=== PATIENT | male | born 1960 ===

== ENCOUNTER 2017-05-31 05:18 | Emergency (ER) | payer OTHER ==
[2017-05-31 05:40] VITALS: PULSE 54; RESP 16; TEMP 98.4; O2SAT 97
--- NOTE | 2017-05-31 05:59 | ED PDOC ---
HPI: Back Time Seen by Provider: 05/31/17 05:41 Chief Complaint (Nursing): Back Pain Chief Complaint (Provider): Back Pain History Per: Patient History/Exam Limitations: no limitations Onset/Duration Of Symptoms: Other (x1 week) Current Symptoms Are (Timing): Still Present Quality Of Discomfort: "Pain" Associated Symptoms: Other Exacerbating Factor(s): Movement (Jogging) Additional Complaint(s): 57 year old female presents to ED with complaints of back pain x1 week and has a past medical history of HTN. (-) radiation of pain, numbness, weakness, loss of sensation, dysuria, or abnormal bowel movements. (+) occasional urinary frequency. Notes that pain worsens after jogging and localizes pain to the lower back region. PCP: SAE - Risk Factors AAA Risk Factors: Pos: Older Than 49 Years Of Age, Hypertension Past Medical History Reviewed: Historical Data, Nursing Documentation, Vital Signs Vital Signs: Last Vital Signs Temp 98.4 F 05/31/17 05:37 Pulse 54 L 05/31/17 05:37 Resp 16 05/31/17 05:37 BP Pulse Ox 97 05/31/17 05:37 - Medical History PMH: HTN - Family History Family History: States: Unknown Family Hx - Allergies Allergies/Adverse Reactions: Allergies Allergy/AdvReac Type Severity Reaction Status Date / Time No Known Allergies Allergy Verified 05/31/17 05:41 Review of Systems ROS Statement: Except As Marked, All Systems Reviewed And Found Negative Gastrointestinal: Negative for: Other ((-) abnormal BM) Genitourinary Male: Positive for: Frequency (occasional). Negative for: Dysuria Musculoskeletal: Positive for: Back Pain (bilat lower back pain). Negative for : Leg Pain Neurological: Negative for: Weakness, Numbness Physical Exam - Reviewed Nursing Documentation Reviewed: Yes Vital Signs Reviewed: Yes - Physical Exam Appears: Positive for: Well, Non-toxic, No Acute Distress Head Exam: Positive for: ATRAUMATIC, NORMAL INSPECTION, NORMOCEPHALIC Skin: Positive for: Normal Color, Warm, Dry Eye Exam: Positive for: EOMI, Normal appearance, PERRL Neck: Positive for: Normal, Painless ROM, Supple Cardiovascular/Chest: Positive for: Regular Rate, Rhythm. Negative for: Murmur Respiratory: Positive for: Normal Breath Sounds. Negative for: Respiratory Distress Gastrointestinal/Abdominal: Positive for: Normal Exam, Soft. Negative for: Tenderness Back: Positive for: Other ((+) mild bilateral lumbar paravertebral musculature tenderness) Extremity: Positive for: Normal ROM, Other ((-) straiht leg test bilaterally) Neurologic/Psych: Positive for: Alert, Oriented, Other ((-) saddle anesthesia). Negative for: Motor/Sensory Deficits (sensations intact) - Laboratory Results Result Diagrams: 05/31/17 06:21 05/31/17 06:21 - ECG O2 Sat by Pulse Oximetry: 97 (RA) Pulse Ox Interpretation: Normal Medical Decision Making Medical Decision Makin Initial impression: musculoskeletal back pain Initial plan: * UDip * Flexeril 10mg PO * Toradol 30mg IM * Re-eval 07 Patient signed out to Jonh Solis MD pending CT. Scribe Attestation: Documented by Vikki Brownlee acting as a scribe for Dagoberto Foote MD. Scribe Attestation: All medical record entries made by the Scribe were at my direction and personally dictated by me. I have reviewed the chart and agree that the record accurately reflects my personal performance of the history, physical exam, medical decision making, and the department course for this patient. I have also personally directed, reviewed, and agree with the discharge instructions and disposition. Disposition - Clinical Impression Clinical Impression: Back pain - Disposition Disposition: Transfer of Care Disposition Time: 07:00 Condition: STABLE Forms: [facility] (Romanian) Patient Signed Over To: Jnoh Solis Handoff Comments: pending CT
[2017-05-31 06:29] VITALS: BP 137/87
[2017-05-31 06:32] LABS: BASO % 0.7 % (0.0-2.0); EOS # 0.1 K/uL (0.0-0.7); EOS % 2.6 % (0.0-4.0); HEMATOCRIT 40.1 % (35.0-51.0); LYMPH # 1.7 K/uL (1.0-4.3); LYMPH % 29.4 % (20.0-40.0); MEAN CELL VOLUME 91.9 fl (80.0-94.0); MEAN CORPUSCULAR HEMOGLOBIN 30.5 pg (27.0-31.0); MEAN CORPUSCULAR HGB CONC 33.1 g/dL (33.0-37.0); MEAN PLATELET VOLUME 8.3 fl (7.2-11.7); MONO # 0.6 K/uL (0.0-0.8); MONO % 10.8 % (0.0-10.0); NEUT # 3.3 K/uL (1.8-7.0); NEUT % 56.5 % (50.0-75.0); NRBC % 0.1 % (0.0-0.0); RED CELL DISTRIBUTION WIDTH 13.4 % (11.5-14.5); WHITE BLOOD COUNT 5.8 K/uL (4.8-10.8)
[2017-05-31 06:36] LABS: BLOOD UREA NITROGEN 20 mg/dl (9-20); CALCIUM 8.5 mg/dL (8.4-10.2); CARBON DIOXIDE 25 mmol/L (22-30); CHLORIDE 103 mmol/L (98-107); GFR AFRICAN-AMERICAN > 60; GLUCOSE,RANDOM 98 mg/dL (75-110); SODIUM 141 mmol/l (132-148)
--- NOTE | 2017-05-31 07:35 | CT ---
EXAM: CT Abdomen and Pelvis Without Intravenous Contrast CLINICAL HISTORY: 57 years old, male; Pain; Abdominal pain; Flank; Right lower quadrant (rlq); Additional info: Back pain, hematuria TECHNIQUE: Axial computed tomography images of the abdomen and pelvis without intravenous contrast. All CT scans at this facility use one or more dose reduction techniques, viz.: automated exposure control; ma/kV adjustment per patient size (including targeted exams where dose is matched to indication; i.e. head); or iterative reconstruction technique. 601 images are submitted.Limitations: Absence of IV contrast decreases sensitivity for detecting solid organ and vascular abnormality. Coronal and sagittal reformatted images were created and reviewed. COMPARISON: No relevant prior studies available. FINDINGS: Lower thorax: There is bibasilar atelectasis. ABDOMEN: Liver: Unremarkable. Gallbladder and bile ducts: Unremarkable. No ductal dilation. Pancreas: Unremarkable. No ductal dilation. Spleen: Unremarkable. No splenomegaly. Adrenals: Unremarkable. No mass. Kidneys and ureters: Unremarkable. No obstructing stones. No hydronephrosis. Stomach and bowel: Diverticulosis. Large amount of stool in the colon. Correlation with patient's clinical history of constipation is recommended. No mucosal thickening. Appendix: Normal appendix. PELVIS: Bladder: Partially distended bladder with bladder wall thickening. Correlation with urinalysis is recommended only if clinical cystitis is suspected. Reproductive: Enlarged prostate gland. ABDOMEN and PELVIS: Intraperitoneal space: Unremarkable. No free air. No significant fluid collection. Bones/joints: No acute fracture. No dislocation. Soft tissues: Right more than left inguinal herniation of fat. Vasculature: Unremarkable. No abdominal aortic aneurysm. Lymph nodes: Unremarkable. No enlarged lymph nodes. IMPRESSION: No acute abnormality on this noncontrast CT examination of the abdomen and pelvis .
[2017-05-31 07:37] LABS: URINE BILIRUBIN NEGATIVE (NEGATIVE); URINE BLOOD LARGE (NEGATIVE); URINE COLOR YELLOW (YELLOW); URINE GLUCOSE (UA) NEG (Normal); URINE KETONE NEGATIVE (NEGATIVE); URINE LEUKOCYTE ESTERASE NEG Leu/uL (Negative); URINE PROTEIN NEGATIVE (NEGATIVE); URINE UROBILINOGEN 0.2-1.0 mg/dL (0.2-1.0)
--- NOTE | 2017-05-31 07:41 | ED PDOC ---
- Laboratory Results Result Diagrams: 05/31/17 06:21 05/31/17 06:21 Urine dip results: Positive for: Blood - ECG O2 Sat by Pulse Oximetry: 97 (RA) Pulse Ox Interpretation: Normal - Progress ED Course And Treament: 700: Took over care from Dr. Foote. Fu on imaging. Here with back pain. 740: Stable. AAOx3. Pain free. Tolerated PO. Fu with pcp. Ambulated with no issues. Disposition - Clinical Impression Clinical Impression: Back pain - POA Present On Arrival: None - Disposition Referrals: [facility] [Outside] - 06/01/17 Disposition: Routine/Home Disposition Time: 07:42 Condition: STABLE Additional Instructions: Return if not better in 3 days. Prescriptions: Ibuprofen [Motrin] 600 mg PO TID 7 Days tab Instructions: Back Pain (ED) Forms: [facility] (German)
[2017-05-31 07:45] LABS: RBC URINE 14 /hpf (0-3); WBC URINE 5 /hpf (0-5)
[2017-05-31 07:46] LABS: URINE BACTERIA RARE (<OCC)
== END 2017-05-31 08:03 | disposition home or self-care (01) ==
LOC: H.ER 05:18
DX: M54.9 Dorsalgia, unspecified (principal); R10.9 Unspecified abdominal pain; I10 Essential (primary) hypertension
CPT/HCPCS: 74176; 80048; 81003; 85025; 96372; 99282; J1885

== ENCOUNTER 2017-07-08 06:46 | Inpatient (IN) | payer OTHER ==
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
[2017-07-08 07:52] LABS: BASO # 0.1 K/uL (0.0-0.2); BASO % 0.9 % (0.0-2.0); EOS # 0.1 K/uL (0.0-0.7); EOS % 1.7 % (0.0-4.0); HEMATOCRIT 39.4 % (35.0-51.0); LYMPH # 1.6 K/uL (1.0-4.3); LYMPH % 29.9 % (20.0-40.0); MEAN CELL VOLUME 90.5 fl (80.0-94.0); MEAN CORPUSCULAR HEMOGLOBIN 30.5 pg (27.0-31.0); MEAN CORPUSCULAR HGB CONC 33.7 g/dL (33.0-37.0); MEAN PLATELET VOLUME 8.2 fl (7.2-11.7); MONO # 0.6 K/uL (0.0-0.8); MONO % 11.5 % (0.0-10.0); NEUT # 3.1 K/uL (1.8-7.0); NRBC % 0.2 % (0.0-0.0); RED CELL DISTRIBUTION WIDTH 13.6 % (11.5-14.5); WHITE BLOOD COUNT 5.5 K/uL (4.8-10.8)
[2017-07-08 07:58] LABS: PARTIAL THROMBOPLASTIN TIME 34.5 Seconds (25.6-37.1)
[2017-07-08 08:03] LABS: ALB/GLOB RATIO 1.2 (1.0-2.1); ALKALINE PHOSPHATASE 47 U/L (38-126); ALT/SGPT 64 U/L (21-72); AST/SGOT 36 U/L (17-59); BILIRUBIN,TOTAL 0.5 mg/dl (0.2-1.3); BLOOD UREA NITROGEN 27 mg/dl (9-20); CALCIUM 8.5 mg/dL (8.4-10.2); CARBON DIOXIDE 24 mmol/L (22-30); CHLORIDE 107 mmol/L (98-107); GFR AFRICAN-AMERICAN > 60; GLUCOSE,RANDOM 95 mg/dL (75-110); POTASSIUM 4.1 MMOL/L (3.6-5.0); SODIUM 142 mmol/l (132-148); TOTAL PROTEIN 7.6 G/DL (6.3-8.2)
--- NOTE | 2017-07-08 08:52 | RAD ---
HISTORY: CP COMPARISON: No prior. FINDINGS: LUNGS: No active pulmonary disease. PLEURA: No significant pleural effusion identified, no pneumothorax apparent. CARDIOVASCULAR: Normal. OSSEOUS STRUCTURES: No significant abnormalities. VISUALIZED UPPER ABDOMEN: Normal. OTHER FINDINGS: None. IMPRESSION: No acute cardiopulmonary disease appreciated.
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
[2017-07-08 11:46] LABS: T4 9.5 ug/dl (5.5-11.0)
[2017-07-08 12:00] LABS: THYROID STIMULATING HORMONE 0.99 mIU/ML (0.46-4.68)
--- NOTE | 2017-07-08 12:58 | CP.PCM.PN ---
Subjective - Date & Time of Evaluation Date of Evaluation: 07/08/17 Time of Evaluation: 12:57 Objective - Vital Signs/Intake and Output Vital Signs (last 24 hours): Temp Pulse Resp BP Pulse Ox 97.5 F L 55 L 18 138/81 97 07/08/17 11:45 07/08/17 11:45 07/08/17 11:45 07/08/17 11:45 07/08/17 11:45 - Medications Medications: Current Medications Aspirin (Aspirin Chewable) 81 mg PO DAILY [facility] Enalapril Maleate (Vasotec) 5 mg PO DAILY [facility] Enoxaparin Sodium (Lovenox) 40 mg SC DAILY [facility] PRN Reason: Protocol Naproxen (Naprosyn Tab) 250 mg PO Q8 [facility] - Labs Labs: 07/08/17 07:36 07/08/17 07:36 PT 12.6 Seconds (9.8-13.1) 07/08/17 07:36 INR 1.1 (0.9-1.2) 07/08/17 07:36 APTT 34.5 Seconds (25.6-37.1) 07/08/17 07:36 Assessment and Plan - Assessment and Plan (Free Text) Plan: check echo check lipids and labs check esr to ro traumatic myocarditis tele pt demarcus without meds, would avoid bbs ro mi
--- NOTE | 2017-07-08 12:59 | CP.PCM.CON ---
Past Patient History - Past Social History Smoking Status: Former Smoker - CARDIAC Hx Cardiac Disorders: Yes (HTN) Hx Hypertension: Yes - PULMONARY Hx Sleep Apnea: Yes (as per pt) - NEUROLOGICAL Hx Neurological Disorder: No - HEENT Hx HEENT Problems: No - RENAL Hx Chronic Kidney Disease: No - ENDOCRINE/METABOLIC Hx Endocrine Disorders: No - HEMATOLOGICAL/ONCOLOGICAL Hx Blood Disorders: No - INTEGUMENTARY Hx Dermatological Problems: No - MUSCULOSKELETAL/RHEUMATOLOGICAL Hx Musculoskeletal Disorders: No Hx Falls: No - GASTROINTESTINAL Hx Gastrointestinal Disorders: No - GENITOURINARY/GYNECOLOGICAL Hx Genitourinary Disorders: No - PSYCHIATRIC Hx Psychophysiologic Disorder: No Hx Substance Use: No - SURGICAL HISTORY Hx Surgeries: No - ANESTHESIA Hx Anesthesia: No Hx Anesthesia Reactions: No Hx Malignant Hyperthermia: No Has any member of the family had a problem w/ anesthesia?: No Meds Allergies/Adverse Reactions: Allergies Allergy/AdvReac Type Severity Reaction Status Date / Time No Known Allergies Allergy Verified 07/08/17 07:04 - Medications Medications: Current Medications Aspirin (Aspirin Chewable) 81 mg PO DAILY [facility] Enalapril Maleate (Vasotec) 5 mg PO DAILY [facility] Enoxaparin Sodium (Lovenox) 40 mg SC DAILY [facility] PRN Reason: Protocol Naproxen (Naprosyn Tab) 250 mg PO Q8 [facility] Results - Vital Signs Recent Vital Signs: Last Vital Signs Temp 97.5 F L 07/08/17 11:45 Pulse 55 L 07/08/17 11:45 Resp 18 07/08/17 11:45 BP 138/81 07/08/17 11:45 Pulse Ox 97 07/08/17 11:45 - Labs Result Diagrams: 07/08/17 07:36 07/08/17 07:36 Labs: Laboratory Results - last 24 hr 07/08/17 07/08/17 07/08/17 07:36 07:36 07:36 WBC 5.5 RBC 4.35 L Hgb 13.3 Hct 39.4 MCV 90.5 MCH 30.5 MCHC 33.7 RDW 13.6 Plt Count 190 MPV 8.2 Neut % (Auto) 56.0 Lymph % (Auto) 29.9 [place] % (Auto) 11.5 H Eos % (Auto) 1.7 Baso % (Auto) 0.9 Neut # 3.1 Lymph # 1.6 [place] # 0.6 Eos # 0.1 Baso # 0.1 PT 12.6 INR 1.1 APTT 34.5 Sodium 142 Potassium 4.1 Chloride 107 Carbon Dioxide 24 Anion Gap 15 BUN 27 H Creatinine 0.7 L Est GFR ( Amer) > 60 Est GFR (Non-Af Amer) > 60 Random Glucose 95 Calcium 8.5 Total Bilirubin 0.5 AST 36 ALT 64 Alkaline Phosphatase 47 Troponin I < 0.0120 Total Protein 7.6 Albumin 4.1 Globulin 3.4 Albumin/Globulin Ratio 1.2 Triglycerides Cholesterol LDL Cholesterol Direct HDL Cholesterol Thyroxine (T4) TSH 3rd Generation 07/08/17 11:10 WBC RBC Hgb Hct MCV MCH MCHC RDW Plt Count MPV Neut % (Auto) Lymph % (Auto) [place] % (Auto) Eos % (Auto) Baso % (Auto) Neut # Lymph # [place] # Eos # Baso # PT INR APTT Sodium Potassium Chloride Carbon Dioxide Anion Gap BUN Creatinine Est GFR ( Amer) Est GFR (Non-Af Amer) Random Glucose Calcium Total Bilirubin AST ALT Alkaline Phosphatase Troponin I Total Protein Albumin Globulin Albumin/Globulin Ratio Triglycerides 55 Cholesterol 128 LDL Cholesterol Direct 57 HDL Cholesterol 49 Thyroxine (T4) 9.50 TSH 3rd Generation 0.99 Assessment & Plan - Assessment and Plan (Free Text) Plan: check echo check lipids and labs check esr and myoglobin to ro traumatic myocarditis tele pt demarcus without meds, would avoid bbs and check tfts ro mi
[2017-07-08] MEDS: Enoxaparin 40 mg Syringe SC SCH (13:28)
[2017-07-09 07:32] LABS: HEMATOCRIT 43.2 % (35.0-51.0); MEAN CELL VOLUME 92.3 fl (80.0-94.0); MEAN CORPUSCULAR HEMOGLOBIN 30.1 pg (27.0-31.0); MEAN CORPUSCULAR HGB CONC 32.6 g/dL (33.0-37.0); RED CELL DISTRIBUTION WIDTH 13.8 % (11.5-14.5); WHITE BLOOD COUNT 4.6 K/uL (4.8-10.8)
[2017-07-09 07:45] LABS: ALB/GLOB RATIO 1.2 (1.0-2.1); ALKALINE PHOSPHATASE 48 U/L (38-126); ALT/SGPT 55 U/L (21-72); AST/SGOT 33 U/L (17-59); BILIRUBIN,TOTAL 0.6 mg/dl (0.2-1.3); BLOOD UREA NITROGEN 17 mg/dl (9-20); CALCIUM 8.6 mg/dL (8.4-10.2); CARBON DIOXIDE 31 mmol/L (22-30); CHLORIDE 103 mmol/L (98-107); CHOLESTEROL 120 mg/dL (0-199); GFR AFRICAN-AMERICAN > 60; GLUCOSE,RANDOM 102 mg/dL (75-110); MAGNESIUM 2.1 MG/DL (1.6-2.3); POTASSIUM 4.9 MMOL/L (3.6-5.0); SODIUM 143 mmol/l (132-148); TOTAL PROTEIN 7.7 G/DL (6.3-8.2)
[2017-07-09 07:53] LABS: T4 9.79 ug/dl (5.5-11.0)
[2017-07-09 08:06] LABS: THYROID STIMULATING HORMONE 0.87 mIU/ML (0.46-4.68)
[2017-07-09] MEDS: Enoxaparin 40 mg Syringe SC SCH (09:08)
--- NOTE | 2017-07-09 10:55 | CP.PCM.PN ---
Subjective - Date & Time of Evaluation Date of Evaluation: 07/09/17 Time of Evaluation: 10:56 - Subjective Subjective: FEELS BETTER CHEST PAIN LESS BRADYCARDIA NOTED ON MONITOR Objective - Vital Signs/Intake and Output Vital Signs (last 24 hours): Temp Pulse Resp BP Pulse Ox 97.6 F 52 L 18 110/68 96 07/09/17 08:00 07/09/17 09:00 07/09/17 08:00 07/09/17 08:00 07/09/17 08:00 - Medications Medications: Current Medications Aspirin (Aspirin Chewable) 81 mg PO DAILY [facility] Last Admin: 07/09/17 09:09 Dose: 81 mg Enalapril Maleate (Vasotec) 5 mg PO DAILY [facility] Last Admin: 07/09/17 09:08 Dose: Not Given Enoxaparin Sodium (Lovenox) 40 mg SC DAILY [facility] PRN Reason: Protocol Last Admin: 07/09/17 09:08 Dose: 40 mg Naproxen (Naprosyn Tab) 250 mg PO Q8 [facility] Last Admin: 07/09/17 09:08 Dose: 250 mg - Labs Labs: 07/09/17 06:10 07/09/17 06:10 PT 12.6 Seconds (9.8-13.1) 07/08/17 07:36 INR 1.1 (0.9-1.2) 07/08/17 07:36 APTT 34.5 Seconds (25.6-37.1) 07/08/17 07:36 - Constitutional Appears: No Acute Distress - Head Exam Head Exam: ATRAUMATIC, NORMAL INSPECTION, NORMOCEPHALIC - Eye Exam Eye Exam: EOMI, Normal appearance, PERRL Pupil Exam: NORMAL ACCOMODATION, PERRL - ENT Exam ENT Exam: Mucous Membranes Moist, Normal Exam - Neck Exam Neck Exam: Full ROM, Normal Inspection. absent: Lymphadenopathy - Respiratory Exam Respiratory Exam: Clear to Ausculation Bilateral, NORMAL BREATHING PATTERN - Cardiovascular Exam Cardiovascular Exam: Bradycardia, REGULAR RHYTHM, +S1, +S2. absent: Murmur - GI/Abdominal Exam GI & Abdominal Exam: Soft, Normal Bowel Sounds. absent: Tenderness - Rectal Exam Rectal Exam: NORMAL INSPECTION - Extremities Exam Extremities Exam: Full ROM, Normal Capillary Refill, Normal Inspection. absent : Joint Swelling, Pedal Edema - Back Exam Back Exam: NORMAL INSPECTION - Neurological Exam Neurological Exam: Alert, Awake, CN II-XII Intact, Normal Gait, Oriented x3 - Psychiatric Exam Psychiatric exam: Normal Affect, Normal Mood - Skin Skin Exam: Dry, Intact, Normal Color, Warm Assessment and Plan - Assessment and Plan (Free Text) Assessment: CHEST PAIN R/O PERICARDIAL DZ BRADYCARDIA HTN CHEST TRAUMA Plan: CONTINUE TELE MONITORING AND CARDIAC CARE AWAIT ECHO
--- NOTE | 2017-07-10 08:56 | CP.PCM.PN ---
Subjective - Date & Time of Evaluation Date of Evaluation: 07/10/17 Time of Evaluation: 08:56 - Subjective Subjective: FEELS BETTER LESS CHEST PAINS STILL HAS BRADYCARDIA--MORE DURING SLEEP NO SOB Objective - Vital Signs/Intake and Output Vital Signs (last 24 hours): Temp Pulse Resp BP Pulse Ox 98 F 55 L 18 120/80 98 07/10/17 08:08 07/10/17 08:08 07/10/17 08:08 07/10/17 08:08 07/10/17 08:08 - Medications Medications: Current Medications Aspirin (Aspirin Chewable) 81 mg PO DAILY [facility] Last Admin: 07/09/17 09:09 Dose: 81 mg Enalapril Maleate (Vasotec) 5 mg PO DAILY [facility] Last Admin: 07/09/17 09:08 Dose: Not Given Enoxaparin Sodium (Lovenox) 40 mg SC DAILY [facility] PRN Reason: Protocol Last Admin: 07/09/17 09:08 Dose: 40 mg Naproxen (Naprosyn Tab) 250 mg PO Q8 [facility] Last Admin: 07/10/17 01:38 Dose: 250 mg - Labs Labs: 07/09/17 06:10 07/09/17 06:10 PT 12.6 Seconds (9.8-13.1) 07/08/17 07:36 INR 1.1 (0.9-1.2) 07/08/17 07:36 APTT 34.5 Seconds (25.6-37.1) 07/08/17 07:36 - Constitutional Appears: No Acute Distress - Head Exam Head Exam: ATRAUMATIC, NORMAL INSPECTION, NORMOCEPHALIC - Eye Exam Eye Exam: EOMI, Normal appearance, PERRL Pupil Exam: NORMAL ACCOMODATION, PERRL - ENT Exam ENT Exam: Mucous Membranes Moist, Normal Exam - Neck Exam Neck Exam: Full ROM, Normal Inspection. absent: Lymphadenopathy - Respiratory Exam Respiratory Exam: Clear to Ausculation Bilateral, NORMAL BREATHING PATTERN - Cardiovascular Exam Cardiovascular Exam: Bradycardia, REGULAR RHYTHM, +S1, +S2. absent: Murmur - GI/Abdominal Exam GI & Abdominal Exam: Soft, Normal Bowel Sounds. absent: Tenderness - Rectal Exam Rectal Exam: NORMAL INSPECTION - Extremities Exam Extremities Exam: Full ROM, Normal Capillary Refill, Normal Inspection. absent : Joint Swelling, Pedal Edema - Back Exam Back Exam: NORMAL INSPECTION - Neurological Exam Neurological Exam: Alert, Awake, CN II-XII Intact, Normal Gait, Oriented x3 - Psychiatric Exam Psychiatric exam: Normal Affect, Normal Mood - Skin Skin Exam: Dry, Intact, Normal Color, Warm Assessment and Plan - Assessment and Plan (Free Text) Assessment: CHEST PAIN BRADYCARDIA-?SLEEP APNEA RELATED CHEST TRAUMA Plan: FOR DISCHARGE TODAY IF ECHO IS NON-REVEALING AND CLEARED BY PAINTING MANAGER OUT PT SLEEP STUDIES SUGGESTED TO PT
[2017-07-10] MEDS: Enoxaparin 40 mg Syringe SC SCH (08:59)
--- NOTE | 2017-07-10 12:23 | CARD ---
APPROVED REPORT EKG Measurement Heart [id number] <Conclusion> Sinus bradycardia Otherwise normal ECG
--- NOTE | 2017-07-10 12:37 | CARD ---
APPROVED REPORT EKG Measurement Heart [id number] <Conclusion> Sinus bradycardia Otherwise normal ECG
[2017-07-10 16:11] VITALS: BP 122/77; PULSE 54; RESP 20; TEMP 98.1; O2SAT 98
[2017-07-10 17:01] LABS: FT3 5.15 pg/mL (2.77-5.27)
--- NOTE | 2017-07-10 17:43 | CP.PCM.PN ---
Subjective - Date & Time of Evaluation Date of Evaluation: 07/10/17 Time of Evaluation: 17:40 Objective - Vital Signs/Intake and Output Vital Signs (last 24 hours): Temp Pulse Resp BP Pulse Ox 98.1 F 54 L 20 122/77 98 07/10/17 16:11 07/10/17 16:11 07/10/17 16:11 07/10/17 16:11 07/10/17 16:11 - Medications Medications: Current Medications Aspirin (Aspirin Chewable) 81 mg PO DAILY [facility] Last Admin: 07/10/17 08:59 Dose: 81 mg Enalapril Maleate (Vasotec) 5 mg PO DAILY [facility] Last Admin: 07/10/17 09:00 Dose: 5 mg Enoxaparin Sodium (Lovenox) 40 mg SC DAILY [facility] PRN Reason: Protocol Last Admin: 07/10/17 08:59 Dose: 40 mg Naproxen (Naprosyn Tab) 250 mg PO Q8 [facility] Last Admin: 07/10/17 16:49 Dose: Not Given - Labs Labs: 07/09/17 06:10 07/09/17 06:10 PT 12.6 Seconds (9.8-13.1) 07/08/17 07:36 INR 1.1 (0.9-1.2) 07/08/17 07:36 APTT 34.5 Seconds (25.6-37.1) 07/08/17 07:36 Assessment and Plan (1) Chest pain Status: Acute - Assessment and Plan (Free Text) Plan: i reviewed the echo images. pt has nml ef, no sig abn. no effusion. pt is stable for d/c to home. outpt stress if pain does not resolve.
--- NOTE | 2017-07-11 08:20 | CARD ---
APPROVED REPORT EXAM: Two-dimensional and M-mode echocardiogram with Doppler and color Doppler. Other Information Quality : GoodRhythm : PVC's INDICATION Chest Pain 2D DIMENSIONS IVSd1.19 (0.7-1.1cm)LVDd4.47 (3.9-5.9cm) LVOT Diameter2.08 (1.8-2.4cm)PWd0.84 (0.7-1.1cm) IVSs1.45 (0.8-1.2cm)LVDs2.65 (2.5-4.0cm) FS (%) 40.7 %PWs1.47 (0.8-1.2cm) M-Mode DIMENSIONS Left Atrium (MM)3.85 (2.5-4.0cm)IVSd0.88 (0.7-1.1cm) Aortic Root2.91 (2.2-3.7cm)LVDd5.41 (4.0-5.6cm) Aortic Cusp Exc.1.88 (1.5-2.0cm)PWd1.03 (0.7-1.1cm) IVSs1.79 cmFS (%) 47 % LVDs2.88 (2.0-3.8cm)PWs1.82 cm Mitral Valve MV E Gsrnendl78.0cm/sMV DECEL [id number] A Yvakqwpw22.8cm/s MV WIS73cqQ/A ratio1.6MVA (PHT)4.11cm2 TDI Lateral E' Peak V14.42cm/sMedial E' Peak V9.86cm/sE/Lateral E'6.2 E/Medial E'9.0 Pulmonary Valve PV Peak Cemyfemp16.5cm/s LEFT VENTRICLE The left ventricle is normal size. There is normal left ventricular wall thickness. Left ventricle systolic function is normal. The Ejection Fraction is 65-70%. There is normal LV segmental wall motion. The left ventricular diastolic function is normal. RIGHT VENTRICLE The right ventricle is normal size. There is normal right ventricular wall thickness. The right ventricular systolic function is normal. ATRIA The left atrium size is normal. The right atrium size is normal. AORTIC VALVE The aortic valve is normal in structure. No aortic regurgitation is present. There is no aortic valvular stenosis. MITRAL VALVE The mitral valve is normal in structure. There is no evidence of mitral valve prolapse. There is no mitral valve stenosis. Mitral regurgitation is trace. TRICUSPID VALVE The tricuspid valve is normal in structure. There is no tricuspid valve regurgitation noted. PULMONIC VALVE The pulmonary valve is normal in structure. There is no pulmonic valvular regurgitation. GREAT VESSELS The aortic root is normal in size. The IVC is normal in size and collapses >50% with inspiration. PERICARDIAL EFFUSION The pericardium appears normal. <Conclusion> The left ventricle is normal size. There is normal left ventricular wall thickness. There is normal LV segmental wall motion. Left ventricle systolic function is normal. The Ejection Fraction is 65-70%. The left ventricular diastolic function is normal.
== END 2017-07-10 18:15 | disposition home or self-care (01) | DRG 143 ==
LOC: H.ER 06:46 → H.ERHOLD 09:57 → H.TEL 11:30 → OBSVTOIN 07-09 10:00 → H.TEL 07-10 00:54
PROVIDERS: ADMIT Internal Medicine Pulmonary Disease; ATTEND Internal Medicine Pulmonary Disease
DX: R07.9 Chest pain, unspecified (principal); I10 Essential (primary) hypertension; R00.1 Bradycardia, unspecified; G47.30 Sleep apnea, unspecified; Z87.891 Personal history of nicotine dependence

== ENCOUNTER 2018-08-03 20:52 | Emergency (ER) | payer OTHER ==
[2018-08-03] MEDS ORDERED: Sodium Chloride 0.9% 1,000 ML IV SCH (21:15)
[2018-08-03 21:33] LABS: BASO % 0.8 % (0.0-2.0); EOS # 0.1 K/uL (0.0-0.7); EOS % 2.3 % (0.0-4.0); HEMOGLOBIN 13.5 g/dL (12.0-18.0); MEAN CELL VOLUME 91.4 fl (80.0-94.0); MEAN CORPUSCULAR HEMOGLOBIN 30.2 pg (27.0-31.0); MEAN CORPUSCULAR HGB CONC 33.1 g/dL (33.0-37.0); MEAN PLATELET VOLUME 8.7 fl (7.2-11.7); MONO # 0.6 K/uL (0.0-0.8); MONO % 11.3 % (0.0-10.0); NEUT # 2.8 K/uL (1.8-7.0); NEUT % 49.6 % (50.0-75.0); RBC 4.47 Mil/uL (4.40-5.90); RED CELL DISTRIBUTION WIDTH 13.8 % (11.5-14.5); WHITE BLOOD COUNT 5.7 K/uL (4.8-10.8)
[2018-08-03 21:44] LABS: ALB/GLOB RATIO 1.2 (1.0-2.1); ALT/SGPT 46 U/L (21-72); AST/SGOT 40 U/L (17-59); BLOOD UREA NITROGEN 26 mg/dl (9-20); CALCIUM 8.6 mg/dL (8.4-10.2); GFR NON-AFRICAN AMERICAN > 60; INR 1.1; PROTHROMBIN TIME 12.7 Seconds (9.8-13.1)
--- NOTE | 2018-08-03 21:45 | ED PDOC ---
HPI: Neurologic - General Time Seen by Provider: 08/03/18 21:04 Chief Complaint (Nursing): Headache Chief Complaint (Provider): Numbness of right side of face Source: patient - History of Present Illness Timing/Duration: 4-6 hours Allergies/Adverse Reactions: Allergies No Known Allergies Allergy (Verified 08/03/18 20:55) Home Medications: Ambulatory Orders Lisinopril [Zestril] 5 mg PO DAILY 12/06/17 Polyethylene Glycol/Polyvinyl [Artificial Tears] 15 ml OP 5XD #1 bottle 08/03/18 Prednisone 50 mg PO DAILY 7 Days #7 tab 08/03/18 valACYclovir [Valtrex] 1,000 mg PO TID 7 Days #21 tab 08/03/18 Additional Complaint(s): 58 year old male, with a past medical history of high blood pressure, presents to the ED with numbness to the right side of the face and difficulty closing his right eye since 16:00 today and mild headache for the past 5 days. Patient denies any weakness, numbness of the extremities, chest pain, shortness of breath, neck stiffness, or fever. States he has been taking fioricet for the pain. Denies chest pain, shortness of breath. PMD: Dr. Singer Past Medical History Reviewed: Historical Data, Nursing Documentation, Vital Signs Vital Signs: Last Vital Signs Temp 98.3 F 08/03/18 20:56 Pulse 57 L 08/03/18 20:56 Resp 14 08/03/18 20:56 BP 186/100 H 08/03/18 20:56 Pulse Ox 97 08/03/18 20:56 - Medical History PMH: HTN, Sleep Apnea (As per pt) Denies: Chronic Kidney Disease - Surgical History Surgical History: No Surg Hx - Family History Family History: States: Unknown Family Hx - Home Medications Home Medications: Ambulatory Orders Medication Instructions Recorded Lisinopril [Zestril] 5 mg PO DAILY 12/06/17 Polyethylene Glycol/Polyvinyl 15 ml OP 5XD #1 bottle 08/03/18 [Artificial Tears] Prednisone 50 mg PO DAILY 7 Days #7 tab 08/03/18 valACYclovir [Valtrex] 1,000 mg PO TID 7 Days #21 tab 08/03/18 - Allergies Allergies/Adverse Reactions: Allergies Allergy/AdvReac Type Severity Reaction Status Date / Time No Known Allergies Allergy Verified 08/03/18 20:55 Review of Systems ROS Statement: Except As Marked, All Systems Reviewed And Found Negative Constitutional: Negative for: Fever Cardiovascular: Negative for: Chest Pain Respiratory: Negative for: Shortness of Breath Musculoskeletal: Negative for: Other (neck stiffness) Neurological: Positive for: Numbness (right side of face), Headache, Other (Difficulty closing right eye; no weakness or numbness of the extremities) Physical Exam - Reviewed Nursing Documentation Reviewed: Yes Vital Signs Reviewed: Yes - Physical Exam Head Exam: Positive for: ATRAUMATIC, NORMOCEPHALIC Skin: Positive for: Normal Color, Warm, Dry Eye Exam: Positive for: Normal appearance Neck: Positive for: Normal, Painless ROM Cardiovascular/Chest: Positive for: Regular Rate, Rhythm Respiratory: Positive for: Normal Breath Sounds. Negative for: Wheezing, Respiratory Distress Gastrointestinal/Abdominal: Positive for: Normal Exam, Soft. Negative for: Tenderness Extremity: Positive for: Normal ROM Neurologic/Psych: Positive for: Alert, Oriented, Cerebellar Tests (normal), Gait (normal), Other (Right sided facial droop; inability to furrow right eyebrow; Eyelid lag on the right. ). Negative for: Motor/Sensory Deficits, Aphasia - Laboratory Results Result Diagrams: 08/03/18 21:15 08/03/18 21:15 - ECG O2 Sat by Pulse Oximetry: 97 (RA) Pulse Ox Interpretation: Normal Medical Decision Making Medical Decision Making: A/P: 58 y/o male with history of migraines and high blood pressure presenting with right sided facial droop. Patient's facial droop is likely to be related to manuel's palsy. Initial Plan: --Type and screen stat --CT head/neck --ECG --CMP --Hemoglobin A1C stat --Lipid panel stat --Troponin stat --CBC --PTT --Prothrombin time --Chest X-ray --Sodium chloride 1000mL IV Given headache for 5 days, will check CT scan. Patient is very well appearing. Anticipate discharge with follow up. 2200 CT negative, vitals improved Patient very well appearing Advised followup with PMD Scribe Attestation: Documented by Hua Gee acting as a scribe for Dagoberto Foote MD. Provider Scribe Attestation: All medical record entries made by the Scribe were at my direction and personally dictated by me. I have reviewed the chart and agree that the record accurately reflects my personal performance of the history, physical exam, medical decision making, and the department course for this patient. I have also personally directed, reviewed, and agree with the discharge instructions and disposition. Disposition - Clinical Impression Clinical Impression: Manuel's palsy - Disposition Referrals: Jacob Singer MD [IM] - Disposition: Routine/Home Disposition Time: 22:00 Condition: STABLE Prescriptions: Polyethylene Glycol/Polyvinyl [Artificial Tears] 15 ml OP 5XD #1 bottle Prednisone 50 mg PO DAILY 7 Days #7 tab valACYclovir [Valtrex] 1,000 mg PO TID 7 Days #21 tab Instructions: Manuel's Palsy (DC) Forms: [employer] (Nicaraguan) Print Language: GERMAN
[2018-08-03 21:47] LABS: PARTIAL THROMBOPLASTIN TIME 35.4 Seconds (25.6-37.1)
[2018-08-03 22:07] VITALS: RESP 16
[2018-08-03 22:35] VITALS: BP 136/84; PULSE 58; TEMP 98.2
[2018-08-04 03:10] VITALS: O2SAT 97
--- NOTE | 2018-08-04 09:52 | RAD ---
Date of service: 08/03/2018 HISTORY: Code Stroke COMPARISON: Chest radiographs 10/07/2017 FINDINGS: LUNGS: No active pulmonary disease. PLEURA: No significant pleural effusion identified, no pneumothorax apparent. CARDIOVASCULAR: No aortic atherosclerotic calcification present. Normal cardiac size. No pulmonary vascular congestion. OSSEOUS STRUCTURES: No significant abnormalities. VISUALIZED UPPER ABDOMEN: Normal. OTHER FINDINGS: None. IMPRESSION: No interval acute cardiopulmonary disease appreciated.
--- NOTE | 2018-08-04 10:54 | CT ---
Date of service: 08/03/2018 PROCEDURE: CT HEAD WITHOUT CONTRAST. HISTORY: R facial droop COMPARISON: None available. TECHNIQUE: Axial computed tomography images were obtained through the head/brain without intravenous contrast. Radiation dose: Total exam DLP = 810.79 mGy-cm. This CT exam was performed using one or more of the following dose reduction techniques: Automated exposure control, adjustment of the mA and/or kV according to patient size, and/or use of iterative reconstruction technique. FINDINGS: HEMORRHAGE: No intracranial hemorrhage. BRAIN: No mass effect or edema. No atrophy or chronic microvascular ischemic changes. VENTRICLES: Unremarkable. No hydrocephalus. CALVARIUM: Unremarkable. PARANASAL SINUSES: Unremarkable as visualized. No significant inflammatory changes. MASTOID AIR CELLS: Unremarkable as visualized. No inflammatory changes. OTHER FINDINGS: None. IMPRESSION: Unremarkable unenhanced CT of the Head. Concordant preliminary report from [facility], 08/03/2018 9:27 p.m..
--- NOTE | 2018-08-04 15:02 | CARD ---
APPROVED REPORT Date of service: 08/03/2018 EKG Measurement Heart [id number] <Conclusion> Normal sinus rhythm Normal ECG
== END 2018-08-03 22:55 | disposition home or self-care (01) ==
LOC: H.ER 20:52
DX: G51.0 Bell's palsy (principal); I10 Essential (primary) hypertension

== ENCOUNTER 2018-08-16 05:27 | Emergency (ER) | payer OTHER ==
[2018-08-16 05:44] VITALS: O2SAT 98
--- NOTE | 2018-08-16 06:10 | ED PDOC ---
HPI: Headache Time Seen by Provider: 08/16/18 05:37 Chief Complaint (Nursing): Headache Chief Complaint (Provider): Headache History Per: Patient History/Exam Limitations: no limitations Onset/Duration Of Symptoms: Days (x14) Additional Complaint(s): 58 y/o male with history of hypertension, scoliosis and sleep apnea presents to ER for evaluation of right sided headache associated with right neck pain onset 2 weeks. Patient reports blood pressure is under control. He states the headache was prescribed Fioricet that made him sleep but headaches return. Patient denies any fever or vomiting. PMD: Jacob Singer Past Medical History Reviewed: Historical Data, Nursing Documentation, Vital Signs Vital Signs: Last Vital Signs Temp 98.1 F 08/16/18 05:41 Pulse 66 08/16/18 05:41 Resp 18 08/16/18 05:41 BP 117/77 08/16/18 05:41 Pulse Ox 98 08/16/18 05:41 - Medical History PMH: HTN, Sleep Apnea (As per pt) Denies: Chronic Kidney Disease Other PMH: Scoliosis - Surgical History Other surgeries: Prostate surgery - Family History Family History: States: Unknown Family Hx - Social History Current smoker - smoking cessation education provided: No Alcohol: None Drugs: Denies - Home Medications Home Medications: Ambulatory Orders Medication Instructions Recorded Lisinopril [Zestril] 5 mg PO DAILY 12/06/17 Polyethylene Glycol/Polyvinyl 15 ml OP 5XD #1 bottle 08/03/18 [Artificial Tears] RX: Prednisone 50 mg PO DAILY 7 Days #7 tab 08/03/18 RX: valACYclovir [Valtrex] 1,000 mg PO TID 7 Days #21 tab 08/03/18 - Allergies Allergies/Adverse Reactions: Allergies Allergy/AdvReac Type Severity Reaction Status Date / Time No Known Allergies Allergy Verified 08/16/18 05:41 Review of Systems ROS Statement: Except As Marked, All Systems Reviewed And Found Negative Constitutional: Negative for: Fever Gastrointestinal: Negative for: Vomiting Musculoskeletal: Positive for: Neck Pain (right sided) Neurological: Positive for: Headache (right sided) Physical Exam - Reviewed Nursing Documentation Reviewed: Yes Vital Signs Reviewed: Yes - Physical Exam Appears: Positive for: Non-toxic, No Acute Distress Head Exam: Positive for: ATRAUMATIC, NORMOCEPHALIC Skin: Positive for: Normal Color, Warm, Dry Eye Exam: Positive for: Normal appearance, EOMI, PERRL ENT: Positive for: Normal ENT Inspection Neck: Positive for: Normal, Painless ROM, Supple Cardiovascular/Chest: Positive for: Regular Rate, Rhythm. Negative for: Murmur Respiratory: Positive for: Normal Breath Sounds. Negative for: Wheezing Gastrointestinal/Abdominal: Positive for: Normal Exam, Soft. Negative for: Tenderness Back: Positive for: Normal Inspection. Negative for: L CVA Tenderness, R CVA Tenderness Extremity: Positive for: Normal ROM. Negative for: Pedal Edema, Deformity Neurologic/Psych: Positive for: Alert, hand i blocker II-XII, Oriented (x3). Negative for: Motor/Sensory Deficits - Laboratory Results Result Diagrams: 08/16/18 06:15 08/16/18 06:15 - ECG O2 Sat by Pulse Oximetry: 98 (RA) Pulse Ox Interpretation: Normal Medical Decision Making Medical Decision Making: Time: 606 Initial Plan: --Head CT W/O Contrast --CMP --CBC [address] Alexander, pending labs, head CT w/o contrast. Scribe Attestation: Documented by Bee De Leon, acting as a scribe for Raj Jovel MD. Provider Scribe Attestation: All medical record entries made by the Scribe were at my direction and personally dictated by me. I have reviewed the chart and agree that the record accurately reflects my personal performance of the history, physical exam, medical decision making, and the department course for this patient. I have also personally directed, reviewed, and agree with the discharge instructions and disposition. Disposition - Clinical Impression Clinical Impression: Headache - Patient ED Disposition Is Patient to be Admitted: Transfer of Care - Disposition Disposition: Transfer of Care Disposition Time: 06:40 Condition: STABLE Forms: [employer] (Luxembourgish)
[2018-08-16 06:26] LABS: BASO # 0.1 K/uL (0.0-0.2); BASO % 0.7 % (0.0-2.0); EOS # 0.3 K/uL (0.0-0.7); HEMOGLOBIN 15.7 g/dL (12.0-18.0); LYMPH # 1.3 K/uL (1.0-4.3); LYMPH % 17.8 % (20.0-40.0); MEAN CELL VOLUME 93.1 fl (80.0-94.0); MEAN CORPUSCULAR HEMOGLOBIN 30.7 pg (27.0-31.0); MEAN PLATELET VOLUME 7.9 fl (7.2-11.7); MONO # 0.8 K/uL (0.0-0.8); NEUT # 5.1 K/uL (1.8-7.0); NEUT % 67.5 % (50.0-75.0); NRBC % 0.1 % (0.0-0.0); RBC 5.09 Mil/uL (4.40-5.90); RED CELL DISTRIBUTION WIDTH 14.1 % (11.5-14.5); WHITE BLOOD COUNT 7.5 K/uL (4.8-10.8)
[2018-08-16 06:39] LABS: ALB/GLOB RATIO 1.2 (1.0-2.1); ALBUMIN 4.4 g/dL (3.5-5.0); ALT/SGPT 54 U/L (21-72); AST/SGOT 38 U/L (17-59); BLOOD UREA NITROGEN 24 mg/dl (9-20); CALCIUM 9.1 mg/dL (8.4-10.2); GFR NON-AFRICAN AMERICAN > 60
[2018-08-16] MEDS ORDERED: Potassium Chloride 20 mEq ER Tab PO ONE ×2 (06:53→07:48)
--- NOTE | 2018-08-16 07:14 | ED PDOC ---
- Laboratory Results Result Diagrams: 08/16/18 06:15 08/16/18 06:15 - ECG O2 Sat by Pulse Oximetry: 98 (RA) Medical Decision Making Medical Decision Makin Patient endorsed to me by Dr. Jovel pending labs and CT head. Scribe Attestation: Documented by Chris Rose, acting as a scribe for Mike Alexander MD. Provider Scribe Attestation: All medical record entries made by the Scribe were at my direction and personally dictated by me. I have reviewed the chart and agree that the record accurately reflects my personal performance of the history, physical exam, medical decision making, and the department course for this patient. I have also personally directed, reviewed, and agree with the discharge instructions and disposition. Disposition - Clinical Impression Clinical Impression: Headache - POA Present On Arrival: None - Disposition Disposition: Routine/Home Disposition Time: 09:10 Condition: STABLE Prescriptions: traMADol [Ultram] 50 mg PO Q8 #10 tab Instructions: Headache, Adult Forms: [employer] (Israeli)
[2018-08-16 09:40] VITALS: BP 107/68; PULSE 68; RESP 16; TEMP 97.8
--- NOTE | 2018-08-16 09:42 | CT ---
Date of service: 08/16/2018 PROCEDURE: CT HEAD WITHOUT CONTRAST. HISTORY: Headache COMPARISON: 08/03/2018. TECHNIQUE: Axial computed tomography images were obtained through the head/brain without intravenous contrast. Radiation dose: Total exam DLP = 1645.96 mGy-cm. This CT exam was performed using one or more of the following dose reduction techniques: Automated exposure control, adjustment of the mA and/or kV according to patient size, and/or use of iterative reconstruction technique. FINDINGS: HEMORRHAGE: No intracranial hemorrhage. BRAIN: Borjas-white matter differentiation is preserved. There is no mass, mass effect or abnormal extra-axial fluid collection. There is no territorial infarction. The midline sagittal structures are normal. VENTRICLES: The ventricles are normal in size, shape and configuration. CALVARIUM: There is no calvarial fracture or extracranial soft tissue swelling. PARANASAL SINUSES: Predominantly clear. MASTOID AIR CELLS: Predominantly clear. OTHER FINDINGS: None. IMPRESSION: No acute intracranial abnormality. A preliminary report was provided by [facility].
== END 2018-08-16 09:29 | disposition home or self-care (01) ==
LOC: H.ER 05:27
DX: R51 Headache (principal); E87.6 Hypokalemia